=== PATIENT | male | born 1935 | race Caucasian/White ===

== ENCOUNTER 2018-03-15 12:54 | Emergency (ER) | payer MEDICARE, OTHER ==
[~2018-03-15] VITALS: Ht 190.5 cm; Wt 106.8 kg
[2018-03-15 12:58] VITALS: Ht 190.5 cm; Wt 106.8 kg
[2018-03-15] MEDS ORDERED: NORVASC10 MG PO (13:00)
[2018-03-15] MEDS ORDERED: LIPITOR20 MG PO (13:00)
[2018-03-15] MEDS ORDERED: HYDRALAZINE HCL50 MG PO (13:00)
[2018-03-15] MEDS ORDERED: ZYLOPRIM300 MG PO (13:02)
[2018-03-15] MEDS ORDERED: MAXZIDE 75/501 TAB (13:02)
[2018-03-15] MEDS ORDERED: HYTRIN5 MG PO (13:02)
[2018-03-15] MEDS ORDERED: PROTONIX40 MG PO (13:03)
[2018-03-15] MEDS ORDERED: MIRAPEX0.25 MG PO (13:03)
[2018-03-15] MEDS ORDERED: COZAAR100 MG PO (13:03)
[2018-03-15] MEDS ORDERED: NAPROSYN500 MG PO (13:03)
[2018-03-15] MEDS ORDERED: MULTI-DAY VITAM1 TAB PO (13:04)
[2018-03-15] MEDS ORDERED: ASPIRIN325 MG PO (13:04)
[2018-03-15] MEDS ORDERED: VITAMIN D2000 UNIT PO (13:04)
[2018-03-15] MEDS ORDERED: MAGNESIUM OXID500 MG PO (13:05)
[2018-03-15] MEDS ORDERED: CATAPRES0.1 MG (13:06)
[2018-03-15] MEDS ORDERED: COREG12.5 MG PO (13:06)
[2018-03-15 14:29] LABS: BASOPHILS 0.3 % (0-2); EOSINOPHILS 2.5 % (0-7); HEMOGLOBIN 11.3 g/dL (13.5-17.5); IMMATURE GRANULOCYTES 0.3 % (0-5); LYMPHOCYTES 14.4 % (15-50); MCH 33.8 pg (26.0-34.0); MCHC 33.2 g/dL (31.0-37.0); MCV 101.8 fL (80.0-100.0); MEAN PLATELET VOLUME 10.1 fL (7.4-10.4); MONOCYTES 11.5 % (2-11); RBC 3.34 10x6/uL (4.20-6.10); RDW 13.7 % (11.5-14.5); WBC 11.5 10x3/uL (4.8-10.8)
[2018-03-15 14:30] LABS: PLATELET COUNT 237 10x3/uL (130-400)
[2018-03-15 14:36] LABS: APTT 26.4 SECONDS (22.8-39.4); INR 1.16 (0.85-1.17); PROTIME 14.3 SECONDS (11.6-15.0)
[2018-03-15 14:46] LABS: ALBUMIN 3.3 g/dL (3.4-5.0); ALKALINE PHOSPHATASE 75 U/L (46-116); ALT (SGPT) 37 U/L (10-68); BILIRUBIN - TOTAL 0.43 mg/dL (0.2-1.3); CALC OSMOLALITY 281 mosm/kg (275-300); CALCIUM 8.5 mg/dL (8.5-10.1); CARBON DIOXIDE 23.3 mmol/L (21.0-32.0); CHLORIDE - SERUM 105 mmol/L (98-107); CREATININE - SERUM 1.3 mg/dL (0.6-1.3); GLUCOSE 121 mg/dL (74-106); POTASSIUM - SERUM 4.4 mmol/L (3.5-5.1); PROTEIN - SERUM 6.3 g/dL (6.4-8.2); SODIUM 138 mmol/L (136-145); UREA NITROGEN 26 mg/dL (7-18); eGFR NON AFRICAN AMERICAN 56 mL/min (90-120)
[2018-03-15 14:53] LABS: CKMB 3.5 U/L (0.0-3.6); CREATINE KINASE 247 UL (21-232); MAGNESIUM - SERUM 2.6 mg/dL (1.8-2.4)
[2018-03-15 14:58] LABS: TROPONIN-I < 0.017 ng/mL (0.000-0.060)
[2018-03-15 15:30] VITALS: BP 160/54
== END 2018-03-15 15:30 | disposition home or self-care (01) ==
LOC: D.ER 12:54
PROVIDERS: Family Medicine
DX: I10 Essential (primary) hypertension (principal); R04.0 Epistaxis

== ENCOUNTER 2018-03-19 00:57 | Emergency (ER) | payer MEDICARE, OTHER ==
[~2018-03-19] VITALS: Ht 190.5 cm; Wt 106.8 kg
[~2018-03-19 00:57] MED LIST: ASPIRIN325 MG PO; CATAPRES0.1 MG; COREG12.5 MG PO; COZAAR100 MG PO; HYDRALAZINE HCL50 MG PO; HYTRIN5 MG PO; LIPITOR20 MG PO; MAGNESIUM OXID500 MG PO; MAXZIDE 75/501 TAB; MIRAPEX0.25 MG PO; MULTI-DAY VITAM1 TAB PO; NAPROSYN500 MG PO; NORVASC10 MG PO; PROTONIX40 MG PO; VITAMIN D2000 UNIT PO; ZYLOPRIM300 MG PO
[2018-03-19 01:01] VITALS: Ht 190.5 cm; Wt 106.8 kg
[2018-03-19 02:34] VITALS: BP 148/75
== END 2018-03-19 02:35 | disposition home or self-care (01) ==
LOC: D.ER 00:57
DX: R04.0 Epistaxis (principal); I25.10 Atherosclerotic heart disease of native coronary artery without angina pectoris; I10 Essential (primary) hypertension

== ENCOUNTER → 2019-09-18 10:01 | Outpatient (CLI) | payer MEDICARE, OTHER ==
[2018-03-19 01:01] VITALS: BMI 29.4
== END | disposition home or self-care (01) ==
LOC: D.CT 10:01
PROVIDERS: ATTEND Family Medicine
DX: I73.9 Peripheral vascular disease, unspecified (principal)

== ENCOUNTER 2019-10-21 07:25 | Day surgery (SDC) | payer MEDICARE, OTHER ==
[~2019-10-21] VITALS: Ht 190.5 cm; Wt 95.0 kg
--- NOTE | ~2019-10-21 | HEMODYNAMI ---
PATIENT:BARBARA FERRERA MEDICAL RECORD: [id number] : 37 [id number] ADMISSION DATE: 10/21/19 Generatedon:10/21/201911:05 Patient name: BARBARA FERRERA Patient #: [id number] SSN: : 1 Date of study: 10/21/2019 Page: Of Hemodynamic Procedure Report Patient Data Patient Demographics Procedure consent was obtained First Name: BARBARA Gender: Male Last Name: MAISHA : 1935 Middle Initial: R Age: 83 year(s) Patient #: [id number] Race: Unknown Additional ID: [id number] Contact details [address]: [address] [place] [address] State: [place] City: [place] Zip code: [address] Admission Admission Data Admission Date: 10/21/2019 Admission Time: 7:25 Procedure Procedure Types Cath Procedure Peripheral Cath Diagnostic Procedure Abd/Extremity Extremities Procedure Description Procedure Date Procedure Date: 10/21/2019 Procedure Start Time: 10:25 Procedure Staff Name Function Micha Young MD Performing Physician Jeff Cooper RT Monitor Evette Iqbal RN Nurse Omi MCCURDY RN Nurse ARIES MARTINEZ RT Scrub Procedure Data Cath Procedure Fluoroscopy Diagnostic fluoroscopy Total fluoroscopy Time: 4.1 time: 4.1 min min Diagnostic fluoroscopy Total fluoroscopy dose: 72 dose: 72 mGy mGy Contrast Material Contrast Material Type Amount (ml) Isovue 300 12 Entry Location Entry Primary Successful Side Size Upsize 1 Upsize Entry Closure Banks ccessful Closure Location (Fr) (Fr) 2 (Fr) Remarks Device Remarks Femoral Left 5 Fr 6 Fr artery Mid-Length Diagnostic catheters Device Type Used For End Catheter Placement DIAGNOSTIC IMT 5Fr Catheter ([id number]) Procedure Medications Medication Administration Route Dosage Lidocaine 1% added to field 20 Heparin Flush Bag added to field 2 bags (1000units/500ml NS) Fentanyl I.V. 50 mcg Versed I.V. 1 mg Fentanyl I.V. 50 mcg Versed I.V. 1 mg Fentanyl I.V. 25 mcg Versed I.V. 0.5 mg Heparin Bolus I.V. 4000 units Versed I.V. 0.5 mg Fentanyl I.V. 25 mcg Fentanyl I.V. 25 mcg Versed I.V. 0.5 mg Hemodynamics Rest Heart Rate: 75 (bpm) Snapshots Pre Cath Intra NCS Post Cath Vital Signs Time Heart Resp SPO2 etCO2 NIBP (mmHg) Rhythm Pain Sedation Rate (ipm) (%) (mmHg) Status Level (bpm) 10:10:57 71 13 100 27.7 157/80(140) A-Fib 0 (11) 9(A) , No pain 10:15:25 69 25 100 27 169/75(162) A-Fib 0 (11) 9(A) , No pain 10:20:24 75 14 100 31.5 Measuring A-Fib 0 (11) 9(A) , No pain 10:21:07 62 8 100 31.5 160/84(114) A-Fib 0 (11) 9(A) , No pain 10:25:36 74 9 100 33.8 169/83(129) A-Fib 0 (11) 9(A) , No pain 10:29:56 72 8 98 38.3 128/57(117) A-Fib 0 (11) 9(A) , No pain 10:34:08 71 8 100 37.5 121/77(105) A-Fib 0 (11) 9(A) , No pain 10:38:24 64 5 99 1.5 115/65(99) A-Fib 0 (11) 8(A) , No pain 10:42:38 69 9 39 106/60(93) A-Fib 0 (11) 8(A) , No pain 10:46:47 78 17 99 36.8 114/64(103) A-Fib 0 (11) 8(A) , No pain 10:51:01 73 15 100 21.7 95/64(90) A-Fib 0 (11) 9(A) , No pain 10:55:56 65 14 36 124/68(104) A-Fib 0 (11) 9(A) , No pain 11:00:10 74 11 100 37.5 132/65(110) A-Fib 0 (11) 9(A) , No pain 11:04:22 73 16 96 24.7 101/73(91) A-Fib 0 (11) 9(A) , No pain Medications Time Medication Route Dose Verified Delivered Reason Notes Effectiveness by by 10:01:45 Lidocaine 1% added 20ml Micha Muse for local to vial Hector Young anesthetic field MD ABBOTT 10:01:57 Heparin Flush added 2 Micha Muse used for Bag to bags Hector Young procedure (1000units/500ml field MD ABBOTT NS) 10:24:29 Fentanyl I.V. 50 Micha Webbr for sedation mcg Hector MCCURDY MD RN 10:24:37 Versed I.V. 1 mg Micha Webbr for sedation Hector MCCURDY MD RN 10:26:32 Fentanyl I.V. 50 Micha Minner for sedation mcg Hector MCCURDY MD, RN 10:26:36 Versed I.V. 1 mg Micha Webbr for sedation Hector MCCURDY MD, RN 10:36:25 Fentanyl I.V. 25 Micha Minner for sedation mcg Hector MCCURDY MD, RN 10:36:29 Versed I.V. 0.5 Micha Minner for sedation mg Hector MCCURDY MD, RN 10:38:14 Heparin Bolus I.V. 4000 Micha Minner for units Hector gonzalez MD RN 10:45:48 Versed I.V. 0.5 Micha Minner for sedation mg Hector MCCURDY MD, RN 10:47:36 Fentanyl I.V. 25 Micha Minner for sedation mcg Hector MCCURDY MD, RN 10:56:51 Fentanyl I.V. 25 Micha Minner for sedation mcg Hector MCCURDY MD, RN 10:57:10 Versed I.V. 0.5 Micha Minner for sedation mg Hector MCCURDY MD, RN Procedure Log Time Note 9:53:52 Omi MCCURDY RN sent for patient. Start room use. 9:54:01 Time tracking: Regular hours (M-F 7:00 - 5:00) 9:54:07 Plan of Care:Hemodynamics will remain stable., Cardiac rhythm will remain stable., Comfort level will be maintained., Respiratory function will remain adequate., Patient/ family verbilizes understanding of procedure., Procedure tolerated without complication., Recovers from procedure without complications.. 9:54:13 Patient received from Outpatients to IR Alert and oriented. Tansferred to table in Supine position. 9:54:17 Signed procedure consent form obtained from patient. 9:54:18 Warm blankets applied, and fredis hugger turned on for patient comfort. 9:54:19 Correct patient and procedure confirmed by team. 9:54:20 ECG and BP/O2 sat monitors applied to patient. 9:54:23 - 9:54:23 - 9:54:24 Full Disclosure recording started 9:54:29 H&P Date Dictated: 10/21/2019 H&P Addendum completed by physician on day of procedure. (MUST COMPLETE FOR ALL OUTPATIENTS). 9:54:29 Pre-procedure instructions explained to patient. 9:54:30 Pre-op teaching completed and patient verbalized understanding. 9:54:31 Family in waiting room. 9:54:34 Patient NPO since Midnight. 9:54:39 Is the patient allergic to Iodine/contrast media? No. 9:54:41 Is patient on blood thinner?No 9:54:43 Patient diabetic? No. 9:54:45 - 9:54:46 ----Pre-sedation anethsthesia assessment.---- 9:54:48 Previous problem with sedation/anesthesia? No ? 9:54:50 Snore? No 9:54:56 Sleep apnea? No 9:54:58 Deviated septum? No 9:55:02 Opens mouth fully? Yes 9:55:05 Sticks out tongue? Yes 9:55:10 Airway obstruction? No ? 9:55:13 Dentures? No ? 9:55:13 - 9:55:22 IV patent on arrival in left wrist with 0.9% NaCl at KVO. 9:55:36 3a) 45-59 Moderately reduced kidney function. 9:56:21 Maximum allowable contrast dose (3.7 X eGFR X 0.75)155 ml. 9:59:42 Pre procedure: right dorsailis pedis pulse Doppler 9:59:46 Pre procedure: left dorsailis pedis pulse Doppler 9:59:50 Pre procedure: right posterior tibial pulse Doppler 9:59:53 Pre procedure: left posterior tibial pulse Doppler 9:59:59 Left groin area was prepped with chlora-prep and draped in sterile fashion 10:01:45 Lidocaine 1% 20ml vial added to field was administered by Micha lizama MD; for local anesthetic; Verbal order read back and verified. 10:01:57 Heparin Flush Bag (1000units/500ml NS) 2 bags added to field was administered by Micha Young MD; used for procedure; Verbal order read back and verified. 10:09:35 Vital chart was started 10:09:36 Baseline sample Acquired. 10:21:47 Physician arrived 10:21:47 --------ALL STOP TIME OUT------ 10:21:48 Final Timeout: patient, procedure, and site verified with staff and physician. All members of the team are in agreement. 10:21:50 Left groin site verified by team. 10:21:53 Fire Safety Assessment: A--An alcohol-based skin anteseptic being used preoperatively., C--Open oxygen or nitrous oxide is being used. 10:21:58 Sedation plan: IV Moderate Sedation Medication:Versed, Fentanyl 10:24:29 Fentanyl 50 mcg I.V. was administered by Omi MCCURDY RN; for sedation; Verbal order read back and verified. 10:24:37 Versed 1 mg I.V. was administered by Omi MCCURDY RN; for sedation; Verbal order read back and verified. 10:25:17 Procedure started. 10:25:34 Local anesthetic to left femerol artery with Lidocaine 1% by Micha Young MD.INITIAL ACCESS ONLY 10:25:53 SHEATH 5FR Louise ([id number]) opened to sterile field. 10:25:54 Micropuncture VSI 4FR kit opened to sterile field. 10:25:54 TREVIÑO 260 wire ([id number]) opened to sterile field. 10:25:54 BENTSON 145cm wire (L14757) opened to sterile field. 10:25:57 A DIAGNOSTIC IMT 5Fr Catheter ([id number]) was advanced over the wire an d used for . 10:25:58 CHOICE PT Extra Support J 300cm guide wire ([id number]) opened to steril e field. 10:25:59 ROADRUNNER .035 260 glide wire (O77891) opened to sterile field. 10:26:00 CXI SUPPORT .035 135 CM STR catheter ([id number]) opened to sterile field. 10:26:32 Fentanyl 50 mcg I.V. was administered by Omi MCCURDY RN; for sedation; Verbal order read back and verified. 10::36 Versed 1 mg I.V. was administered by Omi MCCURDY RN; for sedation; Verbal order read back and verified. 10:36:25 Fentanyl 25 mcg I.V. was administered by Omi MCCURDY RN; for sedation; Verbal order read back and verified. 10:36:29 Versed 0.5 mg I.V. was administered by Omi MCCURDY RN; for sedation; Verbal order read back and verified. 10:36:31 A 5 Fr sheath was inserted into the Left Femoral artery 10:36:36 Sheath upsized to a 6 Fr Mid-Length. 10:37:15 SHEATH 6FR Destination (RSR01) opened to sterile field. 10:38:14 Heparin Bolus 4000 units I.V. was administered by Omi MCCURDY RN; fo r anticoagulation; Verbal order read back and verified. 10:38:17 INFLATOR BasixTOUCH (JA1585) opened to sterile field. 10:41:52 SHEATH 6FR Louise ([id number]) opened to sterile field. 10:45:05 chocolate 6 x 80 opened to field 10:45:48 Versed 0.5 mg I.V. was administered by Omi MCCURDY RN; for sedation; Verbal order read back and verified. 10:47:36 Fentanyl 25 mcg I.V. was administered by Omi MCCURDY RN; for sedation; Verbal order read back and verified. 10:51:17 PERCLOSE Proglide 6FR ( [id number]) opened to sterile field. 10:56:51 Fentanyl 25 mcg I.V. was administered by Omi MCCURDY RN; for sedation; Verbal order read back and verified. 10:57:10 Versed 0.5 mg I.V. was administered by Omi MCCURDY RN; for sedation; Verbal order read back and verified. 10:58:16 Procedure ended.(Physican Out) 10:58:41 Fluoroscopy time 04.10 minutes. 10:58:45 Fluoroscopy dose: 72 mGy 10:58:45 Flurop Dose total: 72 10:58:48 Sharps counted by scrub and verified by R.N. 10:58:50 Insertion/operative site no bleeding no hematoma. 10:58:54 Post-op/insertion site Left Femoral artery dressed using a 4 x 4 and Tegaderm. 10:58:59 Post left femerol artery:stable 10:59:03 Post Procedure Pulses reassessed and unchanged 10:59:08 Contrast amount:Isovue 300 12ml. 10:59:12 Procedure and supply charges have been captured, reviewed, submitted an d are correct. 10:59:14 Post procedure instruction explained to patient.Patient verbalizes understanding. 11:04:45 Report given to Outpatients. 11:04:49 Patient transfered to Outpatients with Stretcher. 11:05:30 Vital chart was stopped Device Usage Item Name Manufacture Quantity Catalog Number Hospital Part Current Min imal Lot# / Charge Number Stock Stock Serial# Code SHEATH 5FR Terumo 1 [id number] 5 Louise ([id number]) Micropuncture VSI VASCULAR 1 [id number] 298528 221864 5 VSI 4FR kit SOLUTIONS TREVIÑO [address] [facility] 1 [id number] 346790 67151 973371 5 wire ([id number]) BENTSON 145cm [facility] 1 [id number] 698792 670826 5 wire ([id number]) DIAGNOSTIC Geraldine 1 [id number] 852097 808037 91168 5 IMT 5Fr Scientific Catheter ([id number]) CHOICE PT Geraldine 1 [id number] 390945 297957 563441 5 Extra Support Scientific J 300cm guide wire ([id number]) ROADRUNNER [facility] 1 B28766 826937 980592 839247 5 [id number] .035 260 glide wire (T02512) CXI SUPPORT [facility] 1 [id number] 954976 631044 266361 5 [id number] .035 135 CM STR catheter ([id number]) SHEATH 6FR Terumo 1 RSR01 368597 84526 444535 5 Destination (RSR01) INFLATOR Merit 1 AS9227 484902 492909 635109 5 CamStent ([id number]) SHEATH 6FR Terumo 1 AMU854 944768 580555 585591 40 Louise ([id number]) PERCLOSE [place] 1 51435-702 863887 911926 246536 5 Proglide 6FR Vascular ( [id number]) Signature Audit [place] Stage Time Signature Unsigned Intra-Procedure 10/21/2019 Jeff 11:05:24 AM [place] RT (R) (CV) [address] [id number] [place] [address]
[2019-10-21 07:44] LABS: BASOPHILS 0.3 % (0-2); EOSINOPHILS 4.5 % (0-7); HEMATOCRIT 40.3 % (42.0-54.0); HEMOGLOBIN 13.4 g/dL (13.5-17.5); IMMATURE GRANULOCYTES 0.2 % (0-5); LYMPHOCYTES 21.7 % (15-50); MCH 33.9 pg (26.0-34.0); MCHC 33.3 g/dL (31.0-37.0); MEAN PLATELET VOLUME 9.4 fL (7.4-10.4); MONOCYTES 9.3 % (2-11); PLATELET COUNT 266 10x3/uL (130-400); RBC 3.95 10x6/uL (4.20-6.10); RDW 13.2 % (11.5-14.5); WBC 9.1 10x3/uL (4.8-10.8)
[2019-10-21 08:04] LABS: APTT 26.5 SECONDS (22.8-39.4); INR 1.17 (0.85-1.17); PROTIME 14.8 SECONDS (11.6-15.0)
[2019-10-21 08:37] LABS: ANION GAP 11.5 mmol/L (8-16); CALCIUM 9.3 mg/dL (8.5-10.1); CARBON DIOXIDE 26.6 mmol/L (21.0-32.0); CREATININE - SERUM 1.3 mg/dL (0.6-1.3); POTASSIUM - SERUM 4.1 mmol/L (3.5-5.1)
[2019-10-21 08:58] VITALS: Ht 190.5 cm; Wt 95.0 kg
[2019-10-21] MEDS ORDERED: XARELTO20 MG PO (09:10)
[2019-10-21] MEDS ORDERED: LASIX40 MG PO (09:11)
[2019-10-21] MEDS ORDERED: ULTRAM50 MG PO (09:11)
[2019-10-21] MEDS ORDERED: ACETAMINOPHEN500 M1 PO (09:12)
--- NOTE | 2019-10-21 11:56 | NUR ---
1115 SEE POST PROCEDURE CHECKLIST FOR VITAL SIGN TRENDS. PT TO LIE PRONE FOR 2 HOURS, CALL LIGHT AT SIDE. 1130 WATER SERVED. ICE PACK TO GROIN, URINAL PROVIDED AT BEDSIDE. TIME FRAME FOR RELEASE AND CRITERIA GIVEN.
== END 2019-10-21 14:05 | disposition home or self-care (01) ==
LOC: D.SP 07:25 → D.RAD 10:00 → D.SP 10:00
PROVIDERS: ATTEND Radiology Diagnostic Radiology
DX: I70.201 Unspecified atherosclerosis of native arteries of extremities, right leg (principal)